=== PATIENT | male | born 1980 | race Caucasian/White ===

== ENCOUNTER 2017-01-03 12:26 | Emergency (ER) | payer SELFPAY ==
[~2017-01-03] VITALS: Ht 180.3 cm; Wt 72.3 kg
[2017-01-03 12:28] VITALS: BP 128/84
[2017-01-03 14:31] LABS: BLOOD UREA NITROGEN 11 mg/dL (7-18)
== END 2017-01-03 14:58 | disposition home or self-care (01) ==
LOC: ED 14:30
DX: J20.9 Acute bronchitis, unspecified (principal); K21.9 Gastro-esophageal reflux disease without esophagitis
CPT/HCPCS: 36415; 71020; 80048; 82040; 85025; 93005; 99285